=== PATIENT | male | born 1965 | race Caucasian/White ===

== ENCOUNTER 2017-07-09 03:54 | Emergency (ER) | payer OTHER ==
[~2017-07-09] VITALS: Ht 175.3 cm; Wt 104.0 kg
[2017-07-09 04:03] VITALS: BP 161/85; PULSE 78; RESP 18; TEMP 98.2; O2SAT 99
--- NOTE | 2017-07-09 05:13 | PD ---
HPI Chief Complaint: Psychiatric Symptoms Time Seen by Provider: 05:02 Travel History International Travel<30 days: No Contact w/Intl Traveler<30days: No Traveled to known affect area: No History of Present Illness HPI 51-year-old male presents to emergency department as a transfer from [facility] for psychiatric evaluation. The patient was placed under Deras act by the ER physician. The patient had gone into the ER stating that he was depressed. Patient is also having increasing visual and auditory hallucinations. He has a history of bipolar disorder, schizophrenia as well as substance abuse. He has been noncompliant with his medications. He has been abusing substances. Patient states that when he abuses substances he becomes increasingly depressed and becomes suicidal. Patient denies any active plan on self-harm. No homicidal ideation. The patient does complain of diabetic neuropathy pain in his lower extremities. He denies any other medical complaints at this time. He does report a history of diabetes but is diet controlled. PFSH Past Medical History Bipolar Disorder: Yes Anxiety: Yes Depression: Yes Cardiovascular Problems: Yes Diabetes: Yes Patient Takes Glucophage: No Hypertension: Yes Psychiatric: Yes ("PSYCHOTIC BEHAVIOR") Schizophrenia: Yes Tetanus Vaccination: Unknown Influenza Vaccination: Yes Past Surgical History Oral Surgery: Yes Other Surgery: Yes (I &D ON RIGHT BUTTOCK ABCESS, UMBILICAL HERNIA REPAIR X2 ) Social History Alcohol Use: No Tobacco Use: Yes Substance Use: Yes (marijuana) Review of Systems General / Constitutional: No: Fever Eyes: No: Visual changes HENT: No: Headaches Cardiovascular: No: Chest Pain or Discomfort Respiratory: No: Shortness of Breath Gastrointestinal: No: Abdominal Pain Genitourinary: No: Dysuria Musculoskeletal: Positive: Pain, No: Weakness Skin: No Rash Neurologic: Positive: Paresthesia, No: Weakness Psychiatric: Positive: Depression, Suicidal Ideations, Disorder of Thought, Mood Disorder, Substance Abuse, No: Anxiety, Homicidal Ideation Endocrine: No: Polydipsia Hematologic/Lymphatic: No: Easy Bruising Physical Exam Narrative GENERAL: Well-nourished, well-developed patient. Patient is resting comfortable in examination room. He is cooperative to exam and history. SKIN: Warm and dry. HEAD: Normocephalic and atraumatic. EYES: No scleral icterus. No injection or drainage. ENT: No nasal drainage noted. Mucous membranes pink. Airway patent. NECK: Supple, trachea midline. Moves head freely without obvious discomfort. CARDIOVASCULAR: Regular rate and rhythm without murmurs, gallops, or rubs. RESPIRATORY: Breath sounds equal bilaterally. No accessory muscle use. GASTROINTESTINAL: Abdomen soft, non-tender, nondistended. EXTREMITIES: No cyanosis or edema. BACK: Nontender without obvious deformity. No CVA tenderness. NEURO: Patient is alert and oriented. no sensorimotor deficits. Nonfocal. Normal speech. PSYCH: No delusions. Positive auditory and visual hallucinations. Data Data Last Documented VS Vital Signs Date Time Temp Pulse Resp B/P (MAP) Pulse Ox O2 Delivery O2 Flow Rate FiO2 07/09/17 04:03 98.2 78 18 161/85 (110) 99 MDM Medical Decision Making Medical Screen Exam Complete: Yes Emergency Medical Condition: Yes Medical Record Reviewed: Yes Interpretation(s) Laboratory tests reviewed. Differential Diagnosis MDM: High Differential diagnoses: Schizophrenia, schizoaffective disorder, bipolar, anxiety, depression, adjustment reaction, mood disorder NOS, ODD, depressive disorder NOS, dementia, dementia with agitation, psychosis NOS, substance induced mood disorder, DMDD, Asperger syndrome, infection,electrolyte abnormality, malingering. Narrative Course Mental health screening discussed with the patient. Psychiatric screen ordered. The patient has been medically cleared by the ER physician at [facility]. I agree with his medical assessment and medical clearance. This is medical clearance for psychiatric admission Diagnosis Primary Impression: Medical clearance for psychiatric admission Condition: Cory Proctor Jul 09, 2017 05:13
[2017-07-09] MEDS ORDERED: THORAZINE (09:48)
[2017-07-09] MEDS ORDERED: SERO400T PO (09:48)
[2017-07-09] MEDS ORDERED: DOXE100C4 PO (09:48)
[2017-07-09 18:28] VITALS: BP 145/85; PULSE 88; RESP 18; O2SAT 100
--- NOTE | 2017-07-09 18:38 | PD ---
History of Present Illness Chief Complaint: Psychiatric Symptoms Time Seen by Provider: 18:10 Travel History International Travel<30 Days: No Contact w/Intl Traveler<30days: No Known affected area: No Legal Status Legal Status: Deras Act Deras Act Signed By: Marielle Wick, license #[id number] History of Present Illness: History of Present Illness HPI 51-year-old single male, who resides with his mother in [place], with reported history of schizophrenia, bipolar disorder, substance abuse, noncompliant with psychiatric medication who presents to emergency department as a transfer from [facility] for psychiatric evaluation. The patient had presented to [facility] on a voluntary basis reporting that he was feeling depressed and wanting to get back on his psychiatric medications. The patient was placed under Deras act by the ER physician. Patient is also reporting visual hallucinations consisting of colored lights as well as auditory hallucinations that consisted of hearing a trumpet playing, or hearing the voice of a female that tells him to be calm. He has been abusing substances. Patient states that when he abuses substances he becomes increasingly depressed and becomes suicidal. Patient denies any active plan on self-harm. No homicidal ideation. Electronic medical is reviewed, no previous contact with [facility] psychiatry. Lab work performed at [facility] with positive toxicology for cannabinoids as well as opiates. He states that he buys the Percocet and Dilaudid from friends. Patient is seen in [facility]. He is alert, oriented, dressed in [facility] with fair hygiene. At times he appears overly dramatic when he is in the middle of conversation and suddenly closes his eye. He does not appear internally preoccupied and does not appear to be responding to internal stimuli. His speech is very clear, logical, of normal rate and tone. The patient does not report suicidal ideation while here in the emergency department. He is upset that he has not been moved to a room with the television. He is also very concerned about being able to get back to [place]. He gives a history of multiple admissions to [facility] with at least 9 previous Deras act. Also reports poor medication compliance and attributes to having no money to purchase the medication, not having any transportation to be able to get to [facility]. He last took medications approximately several months ago. He is adamant that we start Seroquel 400 mg twice a day, Thorazine 100 mg 3 times a day and doxepin 100 mg at bedtime. PFSH Past Medical History Bipolar Disorder: Yes Anxiety: Yes Depression: Yes Cardiovascular Problems: Yes Cirrhosis: Yes Diabetes: Yes (pt states he doesn't have anymore) Patient Takes Glucophage: No Diminished Hearing: Yes Hepatitis: Yes (Hep C) Hypertension: Yes Neurologic: Yes (Neuropathy) Psychiatric: Yes ("PSYCHOTIC BEHAVIOR") Immunizations Current: Yes Schizophrenia: Yes Tetanus Vaccination: Unknown Influenza Vaccination: Yes (2016) Past Surgical History Oral Surgery: Yes (due to accident) Other Surgery: Yes (Hernia x2, cyst removal) Psychiatric History Psychiatric History Hx Psychiatric Treatment: Reports at least 9 previous Deras act at [facility]. Poor compliance with outpatient care History of Inpatient Treatment: Yes Guns or firearms in home: No Social History Single male, unemployed, lives with his mother. He has a pending social security disability case. Hx Alcohol Use: Yes (1 can of beer 07/08/17) Hx Tobacco Use: Yes (0.5/PPD) Hx Substance Use: Yes Substance Use Type: Marijuana, Prescription Medications, Synth Opiates-Pain Pills Hx of Substance Use Treatment: Yes Family Psychiatric History Negative Allergies-Medications (Allergen,Severity, Reaction): Coded Allergies: No Known Allergies (Unverified , 07/09/17) Reported Meds & Prescriptions Reported Meds & Active Scripts Active Reported Doxepin (Doxepin HCl) 100 Mg Cap 100 Mg PO HS [Thorazine] 100 TID Seroquel (Quetiapine Fumarate) 400 Mg Tab 400 Mg PO BID Review of Systems Musculoskeletal: COMPLAINS OF: Joint pain Psychiatric: COMPLAINS OF: Hallucinations Mental Status Examination Appearance: Appropriate ([facility]) Consciousness: Alert Orientation: x4 Motor Activity: Normal gait Speech: Unremarkable Language: Adequate Fund of Knowledge: Adequate Attention and Concentration: Adequate Memory: Unremarkable Mood: Angry (About being here, and concerned over getting back to [place]) Affect: Appropriate Thought Process & Associations: Intact, Logical, Goal directed Thought Content: Appropriate Hallucination Type: None (Does not appear internally stimulated although he reports auditory hallucinations.), Visual (Patient reports visual hallucinations of different colored lights) Delusion Type: None Suicidal Ideation: No Suicidal Plan: No Suicidal Intention: No Homicidal Ideation: No Homicidal Plan: No Homicidal Intention: No Insight: Fair Judgment: Adequate MDM Medical Decision Making Medical Record Reviewed: Yes Assessment/Plan 51-year-old single male, who resides with his mother in [place], with reported history of schizophrenia, bipolar disorder, substance abuse, noncompliant with psychiatric medication who presents to emergency department as a transfer from [facility] for psychiatric evaluation. The patient had presented to [facility] on a voluntary basis reporting that he was feeling depressed and wanting to get back on his psychiatric medications. The patient was placed under Deras act by the ER physician. Patient is also reporting visual hallucinations consisting of colored lights as well as auditory hallucinations that consisted of hearing a trumpet playing, or hearing the voice of a female that tells him to be calm. He has been abusing substances. Patient states that when he abuses substances he becomes increasingly depressed and becomes suicidal. Patient denies any active plan on self-harm. No homicidal ideation. The patient at times appears to be over exaggerating some of his symptomatology and his responses. It is suspicious that he may be attempting to bolster his social security determination case. His continued use of substances certainly has an impact on his mood. At times he comes across as medication seeking for specific medication. He will be placed on [facility] list for disposition. We will attempt to get case management to more involved to transport him back to [place] if not accepted to [facility].. Patient was seen again on July 10, 2017. preeti is found engaged in conversation with his mother over the phone. Appropriate in his interactions. Patient does not demonstrate any evidence of any psychosis. he is asking regarding discharge as he is concerned over transportation back to [place]. preeti at [facility] time does not meet criteria for BA or for inpatient care. he will be discharged home. Instructed to follow up with [facility]. [facility] will transport to [facility]. Orders Orders Psych Screen (07/09/17 05:13) Diet Regular Basic (07/09/17 Breakfast) Diet Regular Basic (07/09/17 Lunch) Diet Regular Basic (07/09/17 Dinner) Results Vital Signs Date Time Temp Pulse Resp B/P (MAP) Pulse Ox O2 Delivery O2 Flow Rate FiO2 07/09/17 18:28 88 18 145/85 (105) 100 Room Air 07/09/17 04:03 98.2 78 18 161/85 (110) 99 Diagnosis Primary Impression: Medical clearance for psychiatric admission Additional Impression: Bipolar disorder Psychiatrically Cleared: Yes Disposition: 01 DISCHARGE HOME Condition: Stable Problem Qualifiers Additional Impression: Bipolar disorder Qualified Codes: F31.70 - Bipolar disorder, currently in remission, most recent episode unspecified Almaz Garrido [facility] Jul 09, 2017 18:38
[2017-07-09] MEDS ORDERED: QUEtiapine FUMARATE 200 MG TAB PO ONE (20:00)
[2017-07-09 22:24] VITALS: BP 116/57; PULSE 97; RESP 18; TEMP 99.3; O2SAT 95
--- NOTE | 2017-07-10 09:47 | PD ---
Physical Exam Date Seen by Provider: Jul 10, 2017 Time Seen by Provider: 09:47 Narrative 51-year-old male Braeden acted in [place] and transferred here for psychiatric evaluation has been medically cleared, and seen by psychiatric staff. Patient currently is cleared for psychiatric discharge. He remains medically stable for discharge as well. Follow-up will be based on the psychiatric note. Patient is to be transferred back to [place] to his home. Data Data Last Documented VS Vital Signs Date Time Temp Pulse Resp B/P (MAP) Pulse Ox O2 Delivery O2 Flow Rate FiO2 07/10/17 05:12 07/09/17 22:24 99.3 97 18 95 Room Air Orders Orders Psych Screen (07/09/17 05:13) Diet Regular Basic (07/09/17 Breakfast) Diet Regular Basic (07/09/17 Lunch) Diet Regular Basic (07/09/17 Dinner) Quetiapine (Seroquel) (07/09/17 20:00) Diet Regular Basic (07/10/17 Breakfast) Diet Regular Basic (07/10/17 Lunch) MDM Medical Record Reviewed: Yes Supervised Visit with TREMAYNE: Yes Narrative Course 51-year-old male Braeden acted in [place] and transferred here for psychiatric evaluation has been medically cleared, and seen by psychiatric staff. Patient currently is cleared for psychiatric discharge. He remains medically stable for discharge as well. Follow-up will be based on the psychiatric note. Patient is to be transferred back to [place] to his home. Diagnosis Primary Impression: Bipolar disorder Qualified Codes: F31.70 - Bipolar disorder, currently in remission, most recent episode unspecified Additional Impression: Medical clearance for psychiatric admission Patient Instructions: General Instructions Departure Forms: Tests/Procedures Disposition: DISCHARGE HOME Condition: Stable Russ Gray Jul 10, 2017 09:47
[2017-07-10 10:10] VITALS: BP 127/75; PULSE 99; RESP 20
[2017-07-10] MEDS ORDERED: ACETAMINOPHEN 500 MG CPLT PO ONE (12:00)
[2017-07-10] MEDS ORDERED: CHLO200T5 PO (12:22)
== END 2017-07-10 13:00 | disposition home or self-care (01) ==
LOC: NEPD 03:54 → NEPJ 07-10 13:00
DX: F31.70 Bipolar disorder, currently in remission, most recent episode unspecified (principal); F20.9 Schizophrenia, unspecified; F17.200 Nicotine dependence, unspecified, uncomplicated
CPT/HCPCS: 99284